=== PATIENT | male | born 1995 | race Caucasian/White ===

== ENCOUNTER 2017-03-06 17:02 | Emergency (ER) | payer OTHER ==
[2017-03-06 17:06] VITALS: BP 150/88; PULSE 67; RESP 16; TEMP 97.9; O2SAT 95
--- NOTE | 2017-03-06 17:28 | EDPHY ---
H & P Stated Complaint: Fell skiing yesterday;+helmet;+LOC;wants to be checked for concussion Time Seen by Provider: 03/06/17 17:18 - Personal History Current Tetanus Diphtheria and Acellular Pertussis (TDAP): Yes - Medical/Surgical History Other PMH: healthy - Social History Smoking Status: Former smoker Constitutional: Initial Vital Signs Temperature (C) 36.6 C 03/06/17 17:03 Heart Rate 67 03/06/17 17:03 Respiratory Rate 16 03/06/17 17:03 Blood Pressure 150/88 H 03/06/17 17:03 O2 Sat (%) 95 03/06/17 17:03 O2 Delivery Mode Room Air Allergies/Adverse Reactions: No Known Allergies Allergy (Unverified 03/06/17 17:06) Home Medications: Medication Instructions Recorded NK [No Known Home Meds] 03/06/17 Medical Decision Making ED Course/Re-evaluation: CHIEF COMPLAINT: Head injury, concussion symptoms HISTORY OF PRESENT ILLNESS: The patient is a 21 y/o male arriving with his friend complaining of headache and difficulty focusing following a head injury 24 hours ago while skiing. He remembers everything up until the injury. Per friends who witnessed the event, he struck his head, but remained alert and talking throughout. He has a gap of about 30 minutes in his memory following the head strike. He was helmeted. He denies nausea, vomiting, weakness, paresthesias, and vision changes. He does complain of a mild headache, difficulty focusing at work, and feels slow in conversations. He has been able to treat his headache with ibuprofen with improvement. He is normally healthy, though has possible remote history of minor concussions. REVIEW OF SYSTEMS: A 10 point review of systems was performed and is negative with the exception of the elements mentioned in the history of present illness. PHYSICAL EXAM: HR, BP, O2 Sat, RR. Temp noted General Appearance: Alert, well hydrated, appropriate, and non-toxic appearing. Head: Atraumatic without scalp tenderness or obvious injury Eyes: Pupils equal, round, reactive to light and accommodation, EOMI, no trauma , no injection. No evidence of increased intraocular pressure. Ears: Clear bilaterally, no perforation, normal landmarks Nose: Atraumatic, no rhinorrhea, clear. Throat: There is no erythema or exudates, no lesions, normal tonsils, mucus membranes moist. Neck: Supple Respiratory: No retractions, no distress, no wheezes, and no accessory muscle use. Lungs are clear to auscultation bilaterally. Cardiovascular: Regular rate and rhythm, no murmurs, rubs, or gallops. Good capillary refill all extremities. Gastrointestinal: Abdomen is soft, nontender, non-distended, no masses, no rebound, no guarding, no peritoneal signs. Musculoskeletal: Normal active ROM of all extremities, atraumatic. Neurological: Alert, appropriate, and interactive. The patient has non-focal cranial nerves, motor, sensory, and cerebellar exam. Skin: No rashes, good turgor, no nodules on palpation. Past medical history: Possible remote mild concussions Past surgical history: Denies Family history: Noncontributory Social history: Friend at bedside. Works at [employer]. Lives in [place]. DIFFERENTIAL DIAGNOSIS: The differential diagnosis for the patient's head injury included but was not limited to concussion, skull fracture, intra- parenchymal contusion, subarachnoid, subdural and epidural hematoma. MEDICAL DECISION MAKING: This is a healthy 21 y/o male who presents for evaluation of suspected concussion following a 30-minute period of retrograde amnesia after he struck his head while skiing yesterday. He complains of mild headache and difficulty focusing today. He has a normal neuro exam and no signs of external trauma. He does not meet criteria for imaging by [place] [facility] rules. I discussed post concussive syndrome care and follow up instructions and answered all his questions. He is comfortable with plan for discharge home. Return precautions given. Departure - Departure Disposition: Home, Routine, Self-Care Clinical Impression: Post concussive syndrome Concussion Qualifiers: Encounter type: initial encounter Loss of consciousness presence/duration: without LOC Qualified Code(s): S06.0X0A - Concussion without loss of consciousness, initial encounter Condition: Good Instructions: Concussion (ED), Head Injury (ED), Post Concussion Syndrome (ED) Additional Instructions: 1. Apply ice to sore areas and take 600mg ibuprofen every 6-8 hours or 650mg Tylenol every 4-6 hours for pain for the next few days. 2. Cognitive rest while symptoms are present. Avoid screen time including TV, phones, and computers until symptoms improve. 3. Physical rest while symptoms are present. Avoid any activities that could put you at further risk for a head injury until your symptoms resolve including contact sports, bicycling, skiing, etc. This may be 2 weeks or longer. 4. Follow up with Dr. Navarro, head injury specialist, for unimproved symptoms over the next 10-14 days. It's not uncommon to experience fatigue, mood swings, and difficulty concentrating with concussions. 5. Return to the ED for severe headache, weakness or numbness on one side of your body, vision changes, or other worsening of condition. Referrals: Neha Navarro MD [Medical Doctor] - As per Instructions Report Scribed for: John Pleitez Report Scribed by: Narcisa Walden Date of Report: 03/06/17 Time of Report: 17:42
== END 2017-03-06 18:00 | disposition home or self-care (01) ==
DX: S06.0X0A Concussion without loss of consciousness, initial encounter (principal); F07.81 Postconcussional syndrome; G44.309 Post-traumatic headache, unspecified, not intractable; Z87.891 Personal history of nicotine dependence; V00.321A Fall from snow-skis, initial encounter; Y99.8 Other external cause status; Y93.23 Activity, snow (alpine) (downhill) skiing, snowboarding, sledding, tobogganing and snow tubing

== ENCOUNTER 2017-12-24 02:05 | Emergency (ER) | payer OTHER ==
--- NOTE | 2017-12-24 03:32 | EDPHY ---
H & P Stated Complaint: intoxicated Source: Patient, Other Exam Limitations: Intoxication - Personal History Current Tetanus/Diphtheria Vaccine: Unsure Current Tetanus Diphtheria and Acellular Pertussis (TDAP): Unsure - Medical/Surgical History Hx Asthma: No Hx Chronic Respiratory Disease: No Hx Diabetes: No Hx Cardiac Disease: No Hx Renal Disease: No Hx Cirrhosis: No Hx Alcoholism: No Hx HIV/AIDS: No Hx Splenectomy or Spleen Trauma: No Other PMH: healthy - Social History Smoking Status: Former smoker Time Seen by Provider: 12/24/17 02:36 HPI/ROS: CHIEF COMPLAINT: Alcohol intoxication HISTORY OF PRESENT ILLNESS: Patient was found by friends to be severely intoxicated, vomiting multiple times in the backseat of a car then dropped off to the emergency department. He had been at a bar earlier in the night and did have several alcoholic drinks. Patient denies any injuries, denies loss of consciousness, denies any recent trauma. Patient denies coingestion, patient denies suicidal or homicidal behavior. REVIEW OF SYSTEMS: 10 systems were reviewed and negative with the exception of the elements mentioned in the history of present illness. PAST MEDICAL HISTORY: None PAST SURGICAL HISTORY: None SOCIAL HISTORY: Denies tobacco or drug use, drinks alcohol occasionally PHYSICAL EXAM: General Appearance: Alert, well hydrated, appropriate, and non-toxic appearing. Head: Atraumatic without scalp tenderness or obvious injury Eyes: Pupils equal, round, reactive to light, no injection. Ears: Clear bilaterally, no perforation, normal landmarks Nose: Atraumatic, no rhinorrhea, clear. Throat: mucus membranes moist. Neck: Supple, non-tender, no lymphadenopathy. Respiratory: No retractions, no distress, no wheezes, and no accessory muscle use. Lungs are clear to auscultation bilaterally. Cardiovascular: Regular rate and rhythm, no murmurs, rubs, or gallops. Gastrointestinal: Abdomen is soft, non-tender, non-distended Musculoskeletal: Normal active ROM of all extremities, atraumatic. Neurological: Alert, appropriate, and interactive. Moves all extremities equally. Skin: No rashes, good turgor, no nodules on palpation. MEDICAL DECISION MAKING: I serially examined this patient since the patient's arrival here in the emergency department. The patient continues to become more and more sober with each examination. I serially questioned the patient and the patient's story given initially has not changed. The patient still denies any trauma, any head injury, and any illicit drug use. At about 6:30 a.m. The patient was more awake, though still unable to walk with a steady gait. I anticipate at 7:00 a.m. He will be signed out to the oncoming provider Dr. Matos pending his sobriety. (Safia Hernandez) Constitutional: Initial Vital Signs Temperature (C) 36.4 C 12/24/17 02:08 Heart Rate 70 12/24/17 02:08 Respiratory Rate 16 12/24/17 02:08 Blood Pressure 118/90 H 12/24/17 02:08 O2 Sat (%) 93 12/24/17 02:08 O2 Delivery Mode Room Air O2 (L/minute) 3 Allergies/Adverse Reactions: No Known Allergies Allergy (Unverified 03/06/17 17:06) Home Medications: Medication Instructions Recorded NK [No Known Home Meds] 03/06/17 Medical Decision Making Other Provider: I assumed care of the patient at 0700 Updated 10:30 a.m.: The patient has sobered in the emergency department and is ambulatory. We have called his roommate to come pick him up. Blood alcohol level is currently 0.08 at 10:30 a.m. (Jose Ramon Matos) Departure - Departure Disposition: Home, Routine, Self-Care Clinical Impression: Alcoholic intoxication Qualifiers: Complication of substance-induced condition: with delirium Qualified Code(s): F10.921 - Alcohol use, unspecified with intoxication delirium Vomiting Qualifiers: Vomiting type: unspecified Vomiting Intractability: non-intractable Nausea presence: with nausea Qualified Code(s): R11.2 - Nausea with vomiting, unspecified Condition: Good Instructions: Alcohol Intoxication (ED), At-Risk Alcohol Use (ED) Referrals: Kia Tovar MD [[facility] Primary Care Provider] - As per Instructions
[2017-12-24 10:55] VITALS: BP 114/80
== END 2017-12-24 11:05 | disposition home or self-care (01) ==
DX: F10.129 Alcohol abuse with intoxication, unspecified (principal)